=== PATIENT | female | born 1970 | race Caucasian/White ===

== ENCOUNTER → 2017-02-15 | Outpatient (CLI) | payer OTHER ==
[~2017-02-15] MED LIST: BACTRIM DS 8001 TA1 PO; Lopressor25 MG PO; NKHM PO; PRILOSEC20 MG PO; PYRIDIUM200 MG PO
== END | disposition home or self-care (01) ==
LOC: US 10:36
DX: R10.10 Upper abdominal pain, unspecified (principal)

== ENCOUNTER → 2019-01-09 | Outpatient (CLI) | payer OTHER | END | disposition home or self-care (01) | LOC: MAMMO 17:01 | DX: Z12.31 Encounter for screening mammogram for malignant neoplasm of breast (principal) ==

== ENCOUNTER → 2019-03-21 | Outpatient (CLI) | payer OTHER | END | disposition home or self-care (01) | LOC: MRI 00:04 → LAB 00:04 → MRI 09:00 | DX: H57.12 Ocular pain, left eye (principal); R42 Dizziness and giddiness; G93.5 Compression of brain; I67.1 Cerebral aneurysm, nonruptured; Z86.73 Personal history of transient ischemic attack (TIA), and cerebral infarction without residual deficits; R51 Headache ==

== ENCOUNTER → 2019-04-16 | Outpatient (CLI) | payer OTHER | END | disposition home or self-care (01) | LOC: CT 04-03 08:00 | DX: H57.12 Ocular pain, left eye (principal) ==

== ENCOUNTER → 2019-06-14 | Outpatient (CLI) | payer OTHER | LOC: CT 13:41 | DX: G93.89 Other specified disorders of brain (principal); G93.5 Compression of brain; Z98.890 Other specified postprocedural states; Z86.73 Personal history of transient ischemic attack (TIA), and cerebral infarction without residual deficits; Z87.798 Personal history of other (corrected) congenital malformations ==

== ENCOUNTER → 2019-12-07 | Outpatient (CLI) | payer OTHER | END | disposition home or self-care (01) | LOC: CT 08:44 | DX: I72.9 Aneurysm of unspecified site (principal) ==

== ENCOUNTER → 2020-02-05 | Outpatient (CLI) | payer OTHER | END | disposition home or self-care (01) | LOC: MAMMO 15:18 | PROVIDERS: ATTEND Nurse Practitioner Primary Care | DX: Z12.31 Encounter for screening mammogram for malignant neoplasm of breast (principal) ==

== ENCOUNTER → 2020-03-27 | Outpatient (CLI) | payer OTHER | END | disposition home or self-care (01) | LOC: COVID19 07:59 | PROVIDERS: ATTEND Internal Medicine | DX: U07.1 COVID-19 (principal) ==

== ENCOUNTER → 2020-12-08 | Outpatient (CLI) | payer OTHER | END | disposition home or self-care (01) | LOC: US 13:23 | PROVIDERS: ATTEND Nurse Practitioner Primary Care | DX: N20.0 Calculus of kidney (principal); N32.89 Other specified disorders of bladder; R31.21 Asymptomatic microscopic hematuria; F17.219 Nicotine dependence, cigarettes, with unspecified nicotine-induced disorders ==

== ENCOUNTER → 2021-06-02 | Outpatient (CLI) | payer OTHER ==
[2021-06-02 10:37] LABS: CREATININE 0.82 mg/dL (0.55-1.02)
== END | disposition home or self-care (01) ==
LOC: LAB 10:00 → CT 10:00 → LAB 10:16
PROVIDERS: Radiology Diagnostic Radiology; ATTEND Physician Assistant Medical
DX: I67.1 Cerebral aneurysm, nonruptured (principal)

== ENCOUNTER → 2021-06-05 | Outpatient (CLI) | payer OTHER | END | disposition home or self-care (01) | LOC: MRI 00:23 | PROVIDERS: ATTEND Physician Assistant Medical | DX: Z48.811 Encounter for surgical aftercare following surgery on the nervous system (principal); G93.89 Other specified disorders of brain ==

== ENCOUNTER 2021-07-11 14:07 | Emergency (ER) | payer OTHER ==
[~2021-07-11] VITALS: Ht 172.7 cm; Wt 53.5 kg
== END 2021-07-11 14:56 | disposition home or self-care (01) ==
LOC: ED 14:07
DX: R21 Rash and other nonspecific skin eruption (principal); M79.644 Pain in right finger(s); Z88.6 Allergy status to analgesic agent; Z79.899 Other long term (current) drug therapy; Z90.711 Acquired absence of uterus with remaining cervical stump; Z98.51 Tubal ligation status

== ENCOUNTER → 2021-07-22 | Outpatient (CLI) | payer OTHER | END | disposition home or self-care (01) | LOC: RAD 09:33 | PROVIDERS: ATTEND Nurse Practitioner Primary Care | DX: M79.89 Other specified soft tissue disorders (principal) ==

== ENCOUNTER 2021-12-01 15:17 | Emergency (ER) | payer OTHER ==
[~2021-12-01] VITALS: Ht 172.7 cm; Wt 52.2 kg
[2021-12-01 16:09] LABS: BASO # 0.1 10*3/uL (0.0-0.1); BASO % 0.6 % (0.0-1.0); EOS # 0.2 10*3/uL (0.0-0.4); EOS % 2.4 % (1.0-4.0); HEMATOCRIT 40.1 % (37.0-47.0); LYMPH # 3.1 10*3/uL (1.3-4.4); LYMPH % 38.8 % (27.0-41.0); MEAN CELL VOLUME 91.6 fl (81.0-99.0); MEAN CORPUSCULAR HGB 29.7 pg (27.0-31.0); MEAN CORPUSCULAR HGB CONC 32.4 g/dl (33.0-37.0); MEAN PLATELET VOLUME 10.1 fl (9.6-12.3); MONO # 0.5 10*3/uL (0.1-1.0); MONO % 6.7 % (3.0-9.0); NEUT # 4.1 10*3/uL (2.3-7.9); NEUT % 51.2 % (47.0-73.0); PLATELET COUNT AUTOMATED 242 10*3/uL (130-400); RED BLOOD COUNT 4.38 10*6/uL (4.10-5.10); RED CELL DISTRI WIDTH 12.9 % (0-14.5); WHITE BLOOD COUNT 7.9 10*3/uL (4.8-10.8)
[2021-12-01 16:25] LABS: ACT PARTIAL THROMBO TIME 26.3 SECONDS (20.0-32.1)
[2021-12-01 16:33] LABS: ALKALINE PHOSPHATASE 104 U/L (45-117); BUN 8 mg/dl (7-24); CHLORIDE 111 mmol/L (98-107); CREATININE 0.77 mg/dL (0.55-1.02); POTASSIUM 3.4 mmol/L (3.5-5.1); SGOT/AST 12 IU/L (3-35); SGPT/ALT 12 U/L (12-78); SODIUM 143 mmol/L (136-145); TOTAL PROTEIN 6.7 gm/dL (6.4-8.2)
[2021-12-01] MEDS ORDERED: VIBRA-TAB100 MG PO (20:46)
== END 2021-12-01 21:18 | disposition home or self-care (01) ==
LOC: ED 15:17
PROVIDERS: Emergency Medicine
DX: J06.9 Acute upper respiratory infection, unspecified (principal); Z20.822 Contact with and (suspected) exposure to COVID-19; Z88.8 Allergy status to other drugs, medicaments and biological substances; Z79.899 Other long term (current) drug therapy; Z90.710 Acquired absence of both cervix and uterus; Z98.51 Tubal ligation status

== ENCOUNTER → 2022-02-26 | Outpatient (CLI) | payer OTHER ==
[~2022-02-26] MED LIST changes: +PREDNISONE20 M1 PO; +VIBRA-TAB100 MG PO; +ZITHROMAX250 MG PO
== END | disposition home or self-care (01) ==
LOC: LAB 14:36
PROVIDERS: ATTEND Internal Medicine
DX: J43.9 Emphysema, unspecified (principal)

== ENCOUNTER 2022-02-27 19:37 | Emergency (ER) | payer OTHER ==
[~2022-02-27 19:37] MED LIST changes: -PREDNISONE20 M1 PO; -ZITHROMAX250 MG PO
[2022-02-27 20:08] LABS: BASO % 0.3 % (0.0-1.0); EOS % 0.2 % (1.0-4.0); HEMATOCRIT 38.6 % (37.0-47.0); LYMPH # 1.9 10*3/uL (1.3-4.4); LYMPH % 13.8 % (27.0-41.0); MEAN CELL VOLUME 90.6 fl (81.0-99.0); MEAN CORPUSCULAR HGB 30.8 pg (27.0-31.0); MEAN CORPUSCULAR HGB CONC 33.9 g/dl (33.0-37.0); MEAN PLATELET VOLUME 9.6 fl (9.6-12.3); MONO # 1.2 10*3/uL (0.1-1.0); MONO % 8.8 % (3.0-9.0); NEUT # 10.6 10*3/uL (2.3-7.9); NEUT % 76.7 % (47.0-73.0); PLATELET COUNT AUTOMATED 261 10*3/uL (130-400); RED BLOOD COUNT 4.26 10*6/uL (4.10-5.10); RED CELL DISTRI WIDTH 13.9 % (0-14.5); WHITE BLOOD COUNT 13.8 10*3/uL (4.8-10.8)
[2022-02-27 20:41] LABS: ALKALINE PHOSPHATASE 99 U/L (45-117); BUN 9 mg/dl (7-24); CHLORIDE 105 mmol/L (98-107); CREATININE 0.79 mg/dL (0.55-1.02); POTASSIUM 2.8 mmol/L (3.5-5.1); SGOT/AST 9 IU/L (3-35); SGPT/ALT 15 U/L (12-78); SODIUM 137 mmol/L (136-145); TOTAL PROTEIN 7.2 gm/dL (6.4-8.2)
[2022-02-27] MEDS ORDERED: PREDNISONE20 M1 PO (21:33)
[2022-02-27] MEDS ORDERED: ZITHROMAX250 MG PO (21:33)
== END 2022-02-27 23:48 | disposition home or self-care (01) ==
LOC: ED 19:37
PROVIDERS: Internal Medicine
DX: J40 Bronchitis, not specified as acute or chronic (principal); E87.6 Hypokalemia; D72.829 Elevated white blood cell count, unspecified; Z88.8 Allergy status to other drugs, medicaments and biological substances; Z79.899 Other long term (current) drug therapy; Z98.51 Tubal ligation status; Z90.711 Acquired absence of uterus with remaining cervical stump

== ENCOUNTER → 2022-09-16 | Outpatient (CLI) | payer OTHER ==
[~2022-09-16] MED LIST changes: +PREDNISONE20 M1 PO; +ZITHROMAX250 MG PO
== END | disposition home or self-care (01) ==
LOC: MAMMO 13:30 → MRI 14:00
PROVIDERS: ATTEND Internal Medicine
DX: Z12.31 Encounter for screening mammogram for malignant neoplasm of breast (principal); I72.9 Aneurysm of unspecified site; G93.89 Other specified disorders of brain

== ENCOUNTER → 2023-02-14 | Outpatient (CLI) | payer OTHER | END | disposition home or self-care (01) | LOC: SDC 00:36 → EDSTATUS 10:00 → SDC 11:00 | PROVIDERS: ATTEND Nurse Practitioner Primary Care | DX: N63.15 Unspecified lump in the right breast, overlapping quadrants (principal); C50.811 Malignant neoplasm of overlapping sites of right female breast ==

== ENCOUNTER → 2023-05-06 | Outpatient (CLI) | payer OTHER ==
[~2023-05-06] MED LIST changes: +ARIMIDEX1 MG PO; +ASPIRIN CHILDRE81 MG PO; +CEFEPIME2 GM/100 M IV; +CHLORHEXIDINE473 M1 PO; +LEXAPRO10 MG PO; +ONDANSETRON ODT8 MG PO; +VANC1PIG IV
[2023-05-06 14:54] LABS: CHLORIDE 108 mmol/L (98-107); POTASSIUM 3.7 mmol/L (3.4-5.1)
[2023-05-06 15:12] LABS: BUN < 5 mg/dl (9-23)
== END | disposition home or self-care (01) ==
LOC: LAB 14:07
PROVIDERS: ATTEND Internal Medicine
DX: Z51.11 Encounter for antineoplastic chemotherapy (principal); Z09 Encounter for follow-up examination after completed treatment for conditions other than malignant neoplasm; C50.911 Malignant neoplasm of unspecified site of right female breast; D70.1 Agranulocytosis secondary to cancer chemotherapy

== ENCOUNTER → 2023-05-24 | Outpatient (CLI) | payer OTHER | END | disposition home or self-care (01) | LOC: CT 05-23 14:00 | PROVIDERS: ATTEND Nurse Practitioner Primary Care | DX: J43.9 Emphysema, unspecified (principal); J18.9 Pneumonia, unspecified organism; J98.4 Other disorders of lung ==

== ENCOUNTER → 2023-07-06 | Outpatient (CLI) | payer OTHER ==
[2023-07-06 13:37] LABS: HEMATOCRIT 34.3 % (37.0-47.0); MANUAL DIFF REFLEX YES; MEAN CORPUSCULAR HGB 30.6 pg (27.0-31.0); MEAN CORPUSCULAR HGB CONC 31.2 g/dl (33.0-37.0); MEAN PLATELET VOLUME 10.1 fl (9.6-12.3); PLATELET COUNT AUTOMATED 287 10*3/uL (130-400); RED CELL DISTRI WIDTH 16.4 % (0-14.5)
[2023-07-06 13:57] LABS: OVALOCYTES FEW; PLATELET SUFFICIENCY NORMAL (NORMAL); POLYCHROMASIA SLIGHT; TOTAL CELLS COUNTED 100 #CELLS
== END | disposition home or self-care (01) ==
LOC: LAB 13:03
PROVIDERS: ATTEND Hospitalist
DX: D61.818 Other pancytopenia (principal); E83.42 Hypomagnesemia; E87.6 Hypokalemia

== ENCOUNTER → 2023-10-06 | Outpatient (CLI) | payer OTHER ==
[2023-10-06 18:17] LABS: VITAMIN D, 25-HYDROXY 22.8 ng/mL (30-100)
== END | disposition home or self-care (01) ==
LOC: LAB 17:19
PROVIDERS: ATTEND Nurse Practitioner Primary Care
DX: C50.911 Malignant neoplasm of unspecified site of right female breast (principal); R63.0 Anorexia; E55.9 Vitamin D deficiency, unspecified; E53.9 Vitamin B deficiency, unspecified

== ENCOUNTER → 2024-03-15 | Outpatient (CLI) | payer OTHER | END | disposition home or self-care (01) | LOC: RAD 15:37 | PROVIDERS: ATTEND Nurse Practitioner Primary Care | DX: R91.8 Other nonspecific abnormal finding of lung field (principal); J40 Bronchitis, not specified as acute or chronic ==

== ENCOUNTER → 2024-09-03 | Outpatient (CLI) | payer OTHER ==
[2024-09-03 10:54] LABS: BASO % 0.7 % (0.0-1.0); EOS # 0.2 10*3/uL (0.0-0.4); EOS % 2.9 % (1.0-4.0); HEMATOCRIT 41.4 % (37.0-47.0); MEAN CELL VOLUME 96.7 fl (81.0-99.0); MEAN CORPUSCULAR HGB 31.1 pg (27.0-31.0); MEAN CORPUSCULAR HGB CONC 32.1 g/dl (33.0-37.0); MEAN PLATELET VOLUME 9.8 fl (9.6-12.3); MONO # 0.5 10*3/uL (0.1-1.0); NEUT # 3.2 10*3/uL (2.3-7.9); NEUT % 51.9 % (47.0-73.0); PLATELET COUNT AUTOMATED 274 10*3/uL (130-400); RED BLOOD COUNT 4.28 10*6/uL (4.10-5.10); RED CELL DISTRI WIDTH 13.1 % (0-14.5); WHITE BLOOD COUNT 6.1 10*3/uL (4.8-10.8)
[2024-09-03 11:17] LABS: ALKALINE PHOSPHATASE 142 U/L (46-116); BUN 7 mg/dl (9-23); CHLORIDE 109 mmol/L (98-107); CHOLESTEROL 199 mg/dL (<200); LDL CHOLESTEROL 133 mg/dL (9-159); POTASSIUM 3.2 mmol/L (3.4-5.1); SGPT/ALT 15 U/L (5-49); TOTAL PROTEIN 6.8 gm/dL (6.0-8.0); TRIGLYCERIDES 136 mg/dl (<150)
[2024-09-03 11:59] LABS: VITAMIN D, 25-HYDROXY 43.8 ng/mL (30-100)
== END | disposition home or self-care (01) ==
LOC: LAB 10:22
PROVIDERS: ATTEND Nurse Practitioner Primary Care
DX: J44.9 Chronic obstructive pulmonary disease, unspecified (principal); E55.9 Vitamin D deficiency, unspecified; E53.8 Deficiency of other specified B group vitamins; Z86.73 Personal history of transient ischemic attack (TIA), and cerebral infarction without residual deficits

== ENCOUNTER 2025-02-08 18:32 | Emergency (ER) | payer SELFPAY ==
[~2025-02-08] VITALS: Ht 172.7 cm; Wt 63.5 kg
[2025-02-08] MEDS ORDERED: HYDROCODONE-AC1 EAC1 PO (20:24)
[2025-02-08] MEDS ORDERED: Ondansetron4 MG PO (20:24)
[2025-02-08] MEDS ORDERED: METHOCARBAMOL750 M1 PO (20:24)
[2025-02-08] MEDS ORDERED: Acetaminophen/Hydrocodone 5 MG/325 MG TABLET PO ONE (20:25)
== END 2025-02-08 20:31 | disposition home or self-care (01) ==
LOC: ED 18:32
DX: S46.912A Strain of unspecified muscle, fascia and tendon at shoulder and upper arm level, left arm, initial encounter (principal); M54.12 Radiculopathy, cervical region; R07.81 Pleurodynia; Z88.6 Allergy status to analgesic agent; Z79.899 Other long term (current) drug therapy; Z79.82 Long term (current) use of aspirin; Z86.73 Personal history of transient ischemic attack (TIA), and cerebral infarction without residual deficits; Z85.3 Personal history of malignant neoplasm of breast; Z90.710 Acquired absence of both cervix and uterus; Z87.891 Personal history of nicotine dependence; X50.0XXA Overexertion from strenuous movement or load, initial encounter; Y93.89 Activity, other specified; Y92.89 Other specified places as the place of occurrence of the external cause; Y99.8 Other external cause status